=== PATIENT | female | born 1965 | race Caucasian/White ===

== ENCOUNTER 2016-07-26 17:53 | Emergency (ER) | payer OTHER ==
[~2016-07-26] VITALS: Ht 170.2 cm; Wt 86.2 kg
[~2016-07-26 17:53] MED LIST: ANTIVERT 25MG #1 PAC PO; ROBITUSSIN W/CO10 ML PO; ZITHROMAX Z-PA250 M1 PO; ZOFRAN ODT4 M1 SL
--- NOTE | 2016-07-26 18:09 | ED GI/GU/ABDOMINAL COMPLAINT ---
History of Present Illness General Chief Complaint: Abdominal Pain/Flank Pain Stated Complaint: ABD PAIN Source: patient, old records Exam Limitations: no limitations Vital Signs & Intake/Output Vital Signs & Intake/Output Vital Signs Date Time Temp Pulse Resp B/P Pulse O2 O2 Flow FiO2 Ox Delivery Rate 07/26 1803 97.0 75 16 142/88 99 Room Air Allergies Coded Allergies: Sulfa (Sulfonamide Antibiotics) (RASH 07/26/16) Reconcile Medications Amlodipine Besylate/Benazepril (Amlodipine-Benazepril 10-40 MG) 10 MG-40 MG CAPSULE 1 CAP PO DAILY BP (Reported) Aspirin (Ecotrin*) 81 MG TABLET.DR 1 TAB PO DAILY HEART/BLOOD (Reported) Atorvastatin Calcium 10 MG TABLET 1 TAB PO DAILY CHOLESTEROL (Reported) Cholecalciferol (Vitamin D3) (Vitamin D) (Unknown Strength) TABLET (Unknown Dose) PO DAILY SUPPLEMENT (Reported) Cyanocobalamin (Vitamin B-12) (Unknown Strength) TABLET (Unknown Dose) PO DAILY SUPPLEMENT (Reported) Gluc 2KCL/Chondr/Earl Hy/Hy AC (Glucosamine & Chondroitin Cap) (Unknown Strength ) CAPSULE (Unknown Dose) PO DAILY SUPPLEMENT (Reported) Ondansetron HCl (Zofran) 4 MG TABLET 1 TAB PO Q6-8P PRN NAUSEA Oxycodone HCl/Acetaminophen (Percocet 5-325 MG Tablet) 5 MG-325 MG TABLET 1 TAB PO Q6 PAIN Tamsulosin HCl (Flomax) 0.4 MG CAP.ER.24H 1 CAP PO DAILY KIDNEY STONE Triamcinolone Acetonide 0.1 % CREAM..G. 1 OSCAR TOP BID ANKLE (Reported) Triage Note: PT STATES SHE IS HAVING CRAMPING IN HER ABD. PT STATES SHE WAS SEEN HERE FOR SAME ABOUT 12 MONTH AGO AND STATES THEY DID NOT FIND ANYTHING. Triage Nurses Notes Reviewed? yes ? N Is pt currently ? No Onset: Abrupt Duration: constant Timing: single episode today Quality/Severity: moderate Severity Numbers: 5 Location: epigastric Radiation: no radiation Activities at Onset: eating HPI: Patient is a 51-year-old female with past medical history of hypertension who presents emergency room stating approximately 2 months ago patient was seen at the emergency room for similar complaints however patient was evaluated for at the time for chest pain and nausea patient follow up with primary care doctor day received outpatient ultrasounds showing sludge of the gallbladder however no signs of cholecystitis. Patient states today at approximately 1300 she ATE Camb[place]ian food and pizza and 30 minutes prior to arrival patient had acute onset of right upper quadrant and epigastric nonradiating pain with mild nausea with no emesis. Patient denies any significant alcohol use or NSAID use Last bowel movement was within last 24 hours no blood no melena noted (YOVANI ALLEN) Past History Travel History Traveled to [place] past 21 day No Medical History Any Pertinent Medical History? see below for history Neurological: NONE EENT: NONE Cardiovascular: hypertension Respiratory: NONE Gastrointestinal: NONE Hepatic: NONE Renal: KIDNEY STONES Musculoskeletal: NONE Psychiatric: NONE Endocrine: NONE Surgical History Surgical History: non-contributory Psychosocial History Who do you live with Family Services at Home None What is your primary language Setswana Tobacco Use: Never used ETOH Use: occasional use Illicit Drug Use: denies illicit drug use Family History Hx Contributory? No (YOVANI ALLEN) Review of Systems Review of Systems Constitutional: Reports: no symptoms. EENTM: Reports: no symptoms. Respiratory: Reports: no symptoms. Cardiovascular: Reports: no symptoms. GI: Reports: see HPI, abdominal pain. Genitourinary: Reports: no symptoms. Musculoskeletal: Reports: no symptoms. Skin: Reports: no symptoms. Neurological/Psychological: Reports: no symptoms. Hematologic/Endocrine: Reports: no symptoms. Immunologic/Allergic: Reports: no symptoms. All Other Systems: Reviewed and Negative (YOVANI ALLEN) Physical Exam Physical Exam General Appearance: well developed/nourished, no apparent distress, alert Gastrointestinal: normal bowel sounds, soft, mODERATE RIGHT UPPER QUADRANT AND EPIGASTRIC POINT TENDERNESS NOTED, NO RIGHT LOWER QUADRANT PAIN NO LEFT LOWER QUADRANT PAIN NO PERITONEAL SIGNS. Comments: Well-developed well-nourished person in no acute distress HEENT: Normal EENT exam, Neck: Supple, no lymphadenopathy, normal range of motion without pain or tenderness Back: Nontender, no CVA tenderness. Cardiovascular: Regular rate and rhythms no murmurs rubs or gallops, normal JVP Respiratory: Chest nontender. No respiratory distress.breath sounds clear to auscultation bilaterally Abdomen: Soft, nontender nondistended, no appreciable organomegaly. Normal bowel sounds. No ascites Extremity: No edema, no calf tenderness to palpation, normal and equal pulses. Neuro: Alert oriented x3, motor sensory normal, Skin: No appreciable rash on exposed skin, skin is warm and dry. Psych: Mood and affect is normal, memory and judgment is normal. Core Measures ACS in differential dx? No Severe Sepsis Present: No Septic Shock Present: No (KITTY MARY,YOVANI) Progress Differential Diagnosis: AAA, AMI, appendicitis, biliary colic, bowel obstruction , colon cancer, cholecystitis, diverticulitis, ectopic , endometritis, esophageal varices, gastritis, hepatitis, hernia, hemorrhoids, ischemic bowel, inflamm bowel dis, intrauterine , kidney stone, Brigitte-Gwen tear, ovarian cyst, ovarian torsion, pancreatitis, PID/cervicitis, peptic ulcer, PUD/ GERD, perforated viscous, SBO, threatened AB, UTI/pyelo Plan of Care: Orders Procedure Date/time Status CULTURE,URINE 07/26 2030 Active URINALYSIS 07/26 2030 Complete PARTIAL THROMBOPLASTIN TIME 07/26 1834 Complete PROTHROMBIN TIME 07/26 1834 Complete LIPASE 07/26 1831 Complete DIRECT BILIRUBIN 07/26 1831 Complete COMPREHENSIVE METABOLIC PANEL 07/26 1831 Complete CBC WITHOUT DIFFERENTIAL 07/26 1831 Complete AMYLASE 07/26 1831 Complete Laboratory Tests 07/26/160: Urine Color STRAW, Urine Clarity CLEAR, Urine pH 7.0, Ur Specific Gilchrist 1.010, Urine Protein NEG, Urine Ketones NEG, Urine Nitrite NEG, Urine Bilirubin NEG, Urine Urobilinogen 0.2, Ur Leukocyte Esterase NEG, Ur Microscopic SEDIMENT EXAMINED, Urine RBC RARE, Urine WBC RARE, Ur Epithelial Cells MOD H, Urine Hemoglobin TRACE-INTACT, Urine Glucose NEG 07/26/16 1855: Anion Gap 11, Estimated GFR > 60, BUN/Creatinine Ratio 18.8, Glucose 91, Calcium 9.7, Total Bilirubin 0.5, Direct Bilirubin 0.3, AST 24, ALT 28, Alkaline Phosphatase 102, Total Protein 7.3, Albumin 4.0, Globulin 3.3, Albumin/Globulin Ratio 1.2, Amylase 61, Lipase 115, PT 10.6, INR 1.01, APTT 32, CBC w Diff NO MAN DIFF REQ, RBC 4.71, MCV 89.3, MCH 29.9, RDW 13.6, MPV 8.6, Gran % 58.4, Lymphocytes % 28.8, Monocytes % 9.5 H, Eosinophils % 2.6, Basophils % 0.7, Absolute Granulocytes 5.4, Absolute Lymphocytes 2.7, Absolute Monocytes 0.9 H, Absolute Eosinophils 0.2, Absolute Basophils 0.1, PUBS MCHC 33.4 Microbiology 07/26 2109 URINE ROUT: Urine Culture - RECD 07/26/2016 7:58:49 PM patient currently no apparent distress and had complete resolution of abdominal pain. Labs are unremarkable at this time however patient is receiving CT scan Patient after CT scan was resulted was given copies and informed of findings. Patient had no concerns of respiratory complaints especially since of pneumonia or bronchitis due to ct scan findings of ground glass OPACITIES Patient did have CT scan findings of right-sided kidney stone Patient currently is tolerating by mouth prior to discharge. Upon discharge patient looks well no apparent distress and will comply with discharge INSTRUCTION AND and had no questions. Discussed hand off with YOVANI DÍAZ PA-C in which patient disposition and plan is currently pending due to urinalysis to be obtained. (KITTY MARY,YOVANI) 07/26/2016 9:49:29 PM discussed with the patient her urinalysis results. She will be provided with follow-up with urology pain medication nausea medicine when necessary I advised return anytime sooner if symptoms worsen she feels comfortable this plan answered all their questions cleared for discharge (YOVANI MCGARRY) Diagnostic Imaging: Viewed by Me: CT Scan. Radiology Impression: acute abnormality Initial ED EKG: none Hand-Off Endorsed To: YOVANI MCGARRY Endorsed Time: 2103 Pending: labs Comments: PATIENT: DONNY LYNN PRESENT AGE: 51 PATIENT ACCOUNT NO: [id number] : 64 LOCATION: [facility] ORDERING PHYSICIAN: YOVANI MARY SERVICE DATE: 07/26/16 EXAM TYPE: CAT - CT ABD & PELVIS W IV CONTRAST EXAMINATION: CT ABDOMEN AND PELVIS WITH CONTRAST CLINICAL INFORMATION: Right upper quadrant pain COMPARISON: Ultrasound 06/06/2016, CT abdomen and pelvis 01/16/2010 TECHNIQUE: Multidetector volumetric imaging was performed of the abdomen and pelvis before and after the IV administration of 94 mL of Omnipaque 300 intravenous contrast. Sagittal and coronal reformatted images were obtained on the technologist's workstation. DLP: 604.70 mGy-cm. FINDINGS: LUNG BASES: There are bibasilar areas of groundglass attenuation which are patchy in distribution and may reflect infection or inflammation. A small opacities are identified within the lingula. This likely represents atelectasis. LIVER, GALLBLADDER, AND BILIARY TREE: The liver enhances homogeneously. There are a few indeterminate areas of enhancement. There is an enhancing lesion within segment 7 of the liver measuring 1.3 cm in size (image 10, series 2). This appears to be a new finding compared to the 2010 study. There is an indeterminate hypoattenuating lesion within segment 8 of the liver measuring 0.6 cm in size. This is not clearly demonstrated on the 2010 examination. A tiny hypoattenuating lesion within segment 6 of the liver is unchanged compared to 2010. The gallbladder is unremarkable with no evidence of radiopaque gallstones, gallbladder wall thickening, or obvious pericholecystic inflammatory changes. PANCREAS: Unremarkable. SPLEEN: Unremarkable. ADRENAL GLANDS: Unremarkable. KIDNEYS AND URETERS: The kidneys enhance symmetrically. There is mild right-sided hydroureteronephrosis which appears to be secondary to a hyperdense focus located immediately proximal to the right ureterovesicular junction measuring 0.3 cm in size (image 80, series 2). The left kidney is unremarkable. There is no hydronephrosis. At the lower pole of left kidney there is a hyperdense structure measuring 0.6 cm in size consistent with a nonobstructing stone. BLADDER: Unremarkable. GASTROINTESTINAL TRACT: There are no dilated loops of small or large bowel. There are scattered diverticula involving the distal descending colon as well as the sigmoid colon. A normal appendix is visualized in the right lower quadrant. ABDOMINAL WALL: No significant hernia is appreciated. LYMPH NODES: Normal. VASCULAR: Unremarkable. PELVIC VISCERA: Unremarkable. OSSEOUS STRUCTURES: There are mild degenerative changes involving the lower lumbar spine. IMPRESSION: 1. Acute right-sided mild hydroureteronephrosis secondary to distal right ureteral stone immediately proximal to the UVJ. 2. Indeterminant enhancing lesion at the dome of the liver possibly new compared to the 2010 remote exam. Consider further characterization with nonemergent MRI. 3. Bibasilar patchy groundglass opacities either consistent with inflammatory or infectious process. Clinical correlation recommended. (KITTY MARY,YOVANI) Departure Departure Disposition: HOME OR SELF CARE Condition: Stable Clinical Impression Primary Impression: Kidney stone on right side Secondary Impressions: Liver lesion Referrals: DALILA BISHOP,EDGAR SOSA MD,CODY (PCP/Family) Additional Instructions: As discussed begin [id number] ibuprofen for pain and inflammation begin the prescription of Percocet for breakthrough pain relief. Begin the prescription of Zofran for future nausea. On Thursday follow-up with urologist Dr. CONNER for further evaluation treatment. Please follow-up with your primary care doctor for your CT scan findings. Begin the prescription of Flomax as directed for the full course Departure Forms: Customer Survey General Discharge Information Prescriptions: Current Visit Scripts Ondansetron HCl (Zofran) 1 TAB PO Q6-8P PRN NAUSEA #15 TAB Oxycodone HCl/Acetaminophen (Percocet 5-325 MG Tablet) 1 TAB PO Q6 #10 TAB Tamsulosin HCl (Flomax) 1 CAP PO DAILY #7 CAP (YOVANI ALLEN)
[2016-07-26 19:14] LABS: ABSOLUTE BASOPHIL COUNT 0.1 /CUMM (0.0-0.2); ABSOLUTE EOSINOPHIL COUNT 0.2 /CUMM (0.0-0.7); ABSOLUTE GRANULOCYTE CT 5.4 /CUMM (1.4-6.5); ABSOLUTE LYMPH COUNT 2.7 /CUMM (1.2-3.4); ABSOLUTE MONOCYTE COUNT 0.9 /CUMM (0.10-0.60); BASOPHIL % 0.7 % (0.0-2.0); EOSINOPHIL % 2.6 % (0-5); GRANULOCYTE % 58.4 % (42.2-75.2); HEMATOCRIT 42.1 % (37-47); MEAN CORPUSCULAR HGB 29.9 PG (27.0-31.0); MEAN CORPUSCULAR HGB CONC 33.4 G/DL (33.0-37.0); MEAN CORPUSCULAR VOLUME 89.3 FL (81.0-99.0); MEAN PLATELET VOLUME 8.6 FL (7.4-10.4); PLATELET COUNT 412 /CUMM (130-400); RBC DISTRIBUTION WIDTH 13.6 % (11.5-14.5); RED BLOOD CELL CT 4.71 /CUMM (4.20-5.40); WHITE BLOOD CELL COUNT 9.3 /CUMM (4.8-10.8)
[2016-07-26 19:28] LABS: PT 10.6 SEC (9.4-12.5); PTT 32 SEC (25-37)
[2016-07-26] MEDS ORDERED: ATORVASTATIN CA10 M1 PO (20:23)
[2016-07-26] MEDS ORDERED: AMLODIPINE-BEN1 EAC5 PO (20:23)
[2016-07-26] MEDS ORDERED: ASPIRIN EC81 M1 PO (20:23)
[2016-07-26] MEDS ORDERED: TRIAMCINOLONE A15 G1 TOP (20:24)
[2016-07-26] MEDS ORDERED: VITAMIN B-121000 MC3 PO (20:26)
[2016-07-26] MEDS ORDERED: VITAMIN D2000 UNI1 PO (20:26)
[2016-07-26] MEDS ORDERED: GLUCOSAMINE &1 EAC1 PO (20:27)
--- NOTE | 2016-07-26 20:28 | CT SCAN REPORT ---
EXAMINATION: CT ABDOMEN AND PELVIS WITH CONTRAST CLINICAL INFORMATION: Right upper quadrant pain COMPARISON: Ultrasound 06/06/2016, CT abdomen and pelvis 01/16/2010 TECHNIQUE: Multidetector volumetric imaging was performed of the abdomen and pelvis before and after the IV administration of 94 mL of Omnipaque 300 intravenous contrast. Sagittal and coronal reformatted images were obtained on the technologist's workstation. DLP: 604.70 mGy-cm. FINDINGS: LUNG BASES: There are bibasilar areas of groundglass attenuation which are patchy in distribution and may reflect infection or inflammation. A small opacities are identified within the lingula. This likely represents atelectasis. LIVER, GALLBLADDER, AND BILIARY TREE: The liver enhances homogeneously. There are a few indeterminate areas of enhancement. There is an enhancing lesion within segment 7 of the liver measuring 1.3 cm in size (image 10, series 2). This appears to be a new finding compared to the 2010 study. There is an indeterminate hypoattenuating lesion within segment 8 of the liver measuring 0.6 cm in size. This is not clearly demonstrated on the 2010 examination. A tiny hypoattenuating lesion within segment 6 of the liver is unchanged compared to 2010. The gallbladder is unremarkable with no evidence of radiopaque gallstones, gallbladder wall thickening, or obvious pericholecystic inflammatory changes. PANCREAS: Unremarkable. SPLEEN: Unremarkable. ADRENAL GLANDS: Unremarkable. KIDNEYS AND URETERS: The kidneys enhance symmetrically. There is mild right-sided hydroureteronephrosis which appears to be secondary to a hyperdense focus located immediately proximal to the right ureterovesicular junction measuring 0.3 cm in size (image 80, series 2). The left kidney is unremarkable. There is no hydronephrosis. At the lower pole of left kidney there is a hyperdense structure measuring 0.6 cm in size consistent with a nonobstructing stone. BLADDER: Unremarkable. GASTROINTESTINAL TRACT: There are no dilated loops of small or large bowel. There are scattered diverticula involving the distal descending colon as well as the sigmoid colon. A normal appendix is visualized in the right lower quadrant. ABDOMINAL WALL: No significant hernia is appreciated. LYMPH NODES: Normal. VASCULAR: Unremarkable. PELVIC VISCERA: Unremarkable. OSSEOUS STRUCTURES: There are mild degenerative changes involving the lower lumbar spine. IMPRESSION: 1. Acute right-sided mild hydroureteronephrosis secondary to distal right ureteral stone immediately proximal to the UVJ. 2. Indeterminant enhancing lesion at the dome of the liver possibly new compared to the 2010 remote exam. Consider further characterization with nonemergent MRI. 3. Bibasilar patchy groundglass opacities either consistent with inflammatory or infectious process. Clinical correlation recommended.
[2016-07-26] MEDS ORDERED: ZOFRAN4 M2 PO (20:38)
[2016-07-26] MEDS ORDERED: PERCOCET 5-3251 EACH PO (20:38)
[2016-07-26] MEDS ORDERED: FLOMAX0.4 M1 PO (20:59)
[2016-07-26 21:54] VITALS: BP 134/82
== END 2016-07-26 21:55 ==
LOC: ERH 17:53
PROVIDERS: Physician Assistant
DX: N20.0 Calculus of kidney (principal); K76.9 Liver disease, unspecified
CPT/HCPCS: 74177; 81001; 87086; 96361; 96374; 96375; J2405

== ENCOUNTER 2016-08-22 01:18 | Observation (INO) | payer OTHER ==
[~2016-08-22] VITALS: Ht 172.7 cm; Wt 87.1 kg
[~2016-08-22 01:18] MED LIST changes: +AMLODIPINE-BEN1 EAC5 PO; +ASPIRIN EC81 M1 PO; +ATORVASTATIN CA10 M1 PO; +FLOMAX0.4 M1 PO; +GLUCOSAMINE &1 EAC1 PO; +PERCOCET 5-3251 EACH PO; +TRIAMCINOLONE A15 G1 TOP; +VITAMIN B-121000 MC3 PO; +VITAMIN D2000 UNI1 PO; +ZOFRAN4 M2 PO
--- NOTE | 2016-08-22 19:20 | Patient Discharge Instructions ---
Discharge Instructions General Discharge Information You were seen/treated for: RULE OUT KIDNEY STONE You had these procedures: URETEROSCOPY WITH STENT PLACEMENT Watch for these problems: INCREASING PAIN, INCREASING BLOOD IN URINE, INABILITY TO URINATE. FEVER >101.5 Call Surgeon to remove: Other (STENT) Diet Continue normal diet: Yes Activity Full Activity/No Limits: Yes Acute Coronary Syndrome Inclusion Criteria At DC or during hospital stay patient has or had the following: ACS DIAGNOSIS No Discharge Core Measures Meds if any: Prescribed or Continued at Discharge Meds if any: NOT Prescribed or Continued at Discharge Congestive Heart Failure Inclusion Criteria At DC or during hospital stay patient has or had the following: CHF DIAGNOSIS No Discharge Core Measures Meds if any: Prescribed or Continued at Discharge Meds if any: NOT Prescribed or Continued at Discharge Cerebrovascular accident Inclusion Criteria At DC or during hospital stay patient has or had the following: CVA/TIA Diagnosis No Discharge Core Measures Meds if any: Prescribed or Continued at Discharge Meds if any: NOT Prescribed or Continued at Discharge Venous thromboembolism Inclusion Criteria VTE Diagnosis No VTE Type NONE VTE Confirmed by (Test) NONE Discharge Core Measures - Per Current guidelines, there needs to be overlap - treatment for the first 5 days of Warfarin therapy. - If discharged on Warfarin prior to 5 days of - overlap therapy, the patient will need to be - assessed for post discharge needs including - *Post discharge parental anticoagulation - *Warfarin and/or parental anticoagulation education - *Follow up date to check INR post discharge At least 5 days overlap therapy as Inpatient No Meds if any: Prescribed or Continued at Discharge Note: Overlap Therapy is Warfarin and Anticoagulant Meds if any: NOT Prescribed or Continued at Discharge
--- NOTE | 2016-08-22 19:23 | Admission Core Measures ---
Admission Meds I reviewed the following Meds: Current Medications Sig/Sb Start time Last Medication Dose Stop Time Status Admin Amlodipine Besylate 10 MG DAILY 08/23 1000 AC (Norvasc) Atorvastatin Calcium 10 MG DAILY 08/23 1000 AC (Lipitor) Cefazolin Sodium 2,000 MG ONCE 08/22 0000 NR (Kefzol-Ancef Inj) 08/22 2359 Acute Coronary Syndrome Inclusion Criteria ACS Diagnosis No Inpatient Core Measures LDL Reminder: If No, please order W/I first 24hr of stay Congestive Heart Failure Inclusion Criteria CHF Diagnosis No Cerebrovascular accident Inclusion Criteria CVA/TIA Diagnosis No Inpatient Core Measures Bedside Swallow Eval Reminder: If BSE failed, place ST order Antithrombotic Reminder: Order Antithrombotic Medication by end of day 2 Antithrombotic Reminder: Document Reason Antithrombotic Not ordered by end of day 2 AFIB/Flutter Reminder: If Present, add to problem list AFIB/Flutter Reminder: Order Anticoag Medication for pts with AFIB/Flutter Atherosclerosis Reminder: If Present, add to problem list LDL Reminder: If No, please order W/I first 24hr of stay PT Order Reminder: If No, please order Venous thromboembolism Inpatient Core Measures VTE Risk Factors: Age > 40 VTE Prophylaxis Ordered Inpt Mech & Pharm No Mech VTE prophylaxis d/t No contraindications No VTE Pharm Prophylaxis d/t No contraindications Inclusion Criteria - Per Current guidelines, there needs to be overlap - treatment for the first 5 days of Warfarin therapy. - Parenteral Anticoagulation (IV or SC) needs to be - given along with Warfarin therapy. VTE Diagnosis No VTE Type NONE VTE Confirmed by (Test) NONE Problem List As ranked by this Provider includes Assessment & Plan 1. Kidney stone on right side HOME MEDS Home Med List Amlodipine Besylate/Benazepril (Amlodipine-Benazepril 10-40 MG) 10 MG-40 MG CAPSULE 1 CAP PO DAILY BP (Reported) Aspirin (Ecotrin*) 81 MG TABLET.DR 1 TAB PO DAILY HEART/BLOOD (Reported) Atorvastatin Calcium 10 MG TABLET 1 TAB PO DAILY CHOLESTEROL (Reported) Cholecalciferol (Vitamin D3) (Vitamin D) (Unknown Strength) TABLET (Unknown Dose) PO DAILY SUPPLEMENT (Reported) Cyanocobalamin (Vitamin B-12) (Unknown Strength) TABLET (Unknown Dose) PO DAILY SUPPLEMENT (Reported) Gluc 2KCL/Chondr/Earl Hy/Hy AC (Glucosamine & Chondroitin Cap) (Unknown Strength ) CAPSULE (Unknown Dose) PO DAILY SUPPLEMENT (Reported) Triamcinolone Acetonide 0.1 % CREAM..G. 1 OSCAR TOP BID ANKLE (Reported)
[2016-08-22 19:55] VITALS: BP 112/60
--- NOTE | 2016-08-22 23:08 | NUR ---
NURSING NOTE; LATE ENTRY; PT ADMITTED TO ROOM 215-02 FROM PACU AT 1955. PT A/OX3, PT ON 2LNC WITH O2 SAT OF 91%. PT DENIES CP, DENIES SOB. PT HAS +PULSES, +BOWEL SOUNDS AND DENIES NAUSEA. PT COMPLAINING OF PAIN IN THE LOWER ABDOMEN. PT MEDICATED WITH PRN PAIN MED. PT ORIENTED TO ROOM AND CALL ADKINS. WILL CONTINUE TO MONITOR.
[2016-08-23 00:08] VITALS: BP 126/82
[2016-08-23] MEDS ORDERED: HYDROMORPHONE HC2 M1 PO (07:48)
[2016-08-23 08:41] VITALS: BP 130/80
--- NOTE | 2016-08-23 09:24 | PN- Urology ---
Subjective Subjective: Admitted as 23 hour observation due to pain s/p ureteral stent placement. No complaints this morning. Voiding spontaneously. Objective Vital Signs and I&Os Vital Signs Date Time Temp Pulse Resp B/P Pulse O2 O2 Flow FiO2 Ox Delivery Rate 08/23 840 98.7 78 20 130/80 91 Room Air 08/23 0008 98.0 85 20 126/82 92 08/23 0000 92 Nasal 2.0L Cannula 08/22 1954 91 Nasal 2.0L Cannula 08/22 1954 97.8 66 20 112/60 91 Nasal 2.0L Cannula Intake & Output 08/23 1600 08/23 0800 08/23 0000 08/22 1600 08/22 0800 08/22 0000 Intake Total 1080 800 Output Total Balance 1080 800 Intake, IV 600 400 Intake, Oral 480 400 Patient 192 lb Weight Physical Exam: Gen: AAOx3 in NAD Cor: S1+S2+ Lungs: CTA samson Abd: soft, NT, ND, +BSx4 Ext: no edema or calf tenderness to samson lower extremities. Assessment/Plan Assessment/Plan A: POD #1 s/p cystoscopy/ ureteral stent placement. AVSS. Plan: D/C home. Dr Mayer aware. Core Measures/Miscellaneous Venous Thromboembolism VTE Risk Factors: Age > 40, Surgery VTE Contraindications: No Contraindications VTE Prophylaxis Ordered Inpt: Mech & Pharm VTE Diagnosis: No VTE Type: NONE VTE Confirmed by (Test): NONE Beta Ananth Is Beta Ananth a Home Med? No Antibiotics Is Patient on Antibiotics? No
[2016-08-23 10:12] VITALS: BP 142/90
--- NOTE | 2016-08-23 14:19 | Operative Report ---
Operative/Inv Procedure Report Surgery Date: 08/22/16 Name of Procedure: left ureteroscopy with retrograde pyelopgram and right ureteroscopy Pre-Operative Diagnosis: left renal stone with colic Post-Operative Diagnosis: same Estimated Blood Loss: scant Surgeon/Spout Liner Helper: ROMEO BULLOCK MD Anesthesia: laryngeal mask airway Drains: 6x24 stent Complications: no stones found Condition: stable Operative Indication: left renal colic Operative/Procedure Note Note: 51yo female with hx of kidney stones. She was then counseled about left ureteroscopy with laser lithotripsy. Answered all questions after risks, benefits and alternatives given. Consented for left URS with laser lithotripsy, stone extraction, stent placement, possible retrorgrade pyelogram Patient identified in the holding area and taken to the operating room. She was placed on the operating table in the supine position. Time out was performed and IV antibiotics were given. An LMA was placed and the patient was positioned in the dorsal lithotomy position. She was prepped and draped in the standard sterile fashion. Cystoscopy was performed first and a sensor guidewire was placed without difficulty up the left ureter. A second wire was placed with a dual lumen catheter. An ureteral access sheath was then placed. The flexible digital scope was then placed into the renal pelvis. A stone was not identified in the renal pelvis which was examined twice with the digital scope. All the calyces were examined twice after the retrograde pyelogram as well. A retrograde pyelogram was performed and no filling defects to suggest stones were appreciated. The ureteral access sheath was removed while viewing the ureter outoing simultaneously. The remaining wire was then used to place a ureteral stent 6x24cm in length with the cystoscope. A right ureteroscopy was performed with a semi-rigid scope and no stones were seen on this side either. The patient tolerated the procedure well. Findings: no stones on the right or left side by flouro or direct with ureteroscopes Discharge Disposition: PACU
--- NOTE | 2016-08-23 15:01 | RADIOLOGY REPORT ---
EXAMINATION: XR ABDOMEN CLINICAL INDICATION: Left ureteroscopy. COMPARISON: CT abdomen pelvis 08/13/2016. TECHNIQUE: 6 fluoroscopic images provided under the supervision of Dr. Mayer in operating room. Fluoroscopic time not provided. FINDINGS/IMPRESSION: Imaging shows progression of instrumentation for cannulation and retrograde injection of the left ureter/renal collecting system. No extravasation of contrast. No complication demonstrated. Please refer to Dr. Sanchez's procedural note.
== END 2016-08-23 13:24 ==
LOC: ENRESERVTM → ENRESERVDT → STS 01:18 → ENPENDDIS 18:53 → PACUH 18:53 → 2NB 19:55
PROVIDERS: ADMIT Urology
DX: N23 Unspecified renal colic (principal)
CPT/HCPCS: 6040; 74000; C2617; G0378; J0131; J0690; J1644; J1885; J2405

== ENCOUNTER 2016-08-24 09:06 | Emergency (ER) | payer OTHER ==
[~2016-08-24] VITALS: Ht 172.7 cm; Wt 87.1 kg
[~2016-08-24 09:06] MED LIST changes: +HYDROMORPHONE HC2 M1 PO
[2016-08-24 09:13] VITALS: BP 122/78
--- NOTE | 2016-08-24 09:43 | ED GI/GU/ABDOMINAL COMPLAINT ---
History of Present Illness General Chief Complaint: Abdominal Pain/Flank Pain Stated Complaint: "I HAVE BLOOD IN MY URINE" Source: patient, family, old records Exam Limitations: no limitations Vital Signs & Intake/Output Vital Signs & Intake/Output Vital Signs Date Time Temp Pulse Resp B/P Pulse O2 O2 Flow FiO2 Ox Delivery Rate 08/24 0913 97.9 74 20 122/78 97 Room Air Room Air Allergies Coded Allergies: Sulfa (Sulfonamide Antibiotics) (RASH 07/26/16) Reconcile Medications Amlodipine Besylate/Benazepril (Amlodipine-Benazepril 10-40 MG) 10 MG-40 MG CAPSULE 1 CAP PO DAILY BP (Reported) Aspirin (Ecotrin*) 81 MG TABLET.DR 1 TAB PO DAILY HEART/BLOOD (Reported) Atorvastatin Calcium 10 MG TABLET 1 TAB PO DAILY CHOLESTEROL (Reported) Cholecalciferol (Vitamin D3) (Vitamin D) (Unknown Strength) TABLET (Unknown Dose) PO DAILY SUPPLEMENT (Reported) Cyanocobalamin (Vitamin B-12) (Unknown Strength) TABLET (Unknown Dose) PO DAILY SUPPLEMENT (Reported) Gluc 2KCL/Chondr/Earl Hy/Hy AC (Glucosamine & Chondroitin Cap) (Unknown Strength ) CAPSULE (Unknown Dose) PO DAILY SUPPLEMENT (Reported) Hydromorphone HCl 2 MG TABLET 1-2 TAB PO Q4P PRN PAIN Triamcinolone Acetonide 0.1 % CREAM..G. 1 OSCAR TOP BID ANKLE (Reported) Triage Note: PT TO ED WITH C/O BLOODY URINE, HAD PROCEDURE AND STENT PLACED ON THURSDAY BY DR MAYER. DENIES FEVER. Triage Nurses Notes Reviewed? yes ? n Is pt currently ? No HPI: Patient presents for evaluation of blood in the urine that began last night. Patient states she has had 3 episodes. She is status post renal stent placement on Thursday by Dr. Mayer. She is experiencing a mild left flank and abdominal pain and also mild dysuria but denies associated fever or cold symptoms. She attempted to call her primary care doctor and Dr. Bermudez's without response. The color of the urine seems to be getting darker with each subsequent episode of hematuria. Past History Travel History Traveled to [place] past 21 day No Medical History Any Pertinent Medical History? 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 No Review of Systems Review of Systems Constitutional: Reports: no symptoms. EENTM: Reports: no symptoms. Respiratory: Reports: no symptoms. Cardiovascular: Reports: no symptoms. GI: Reports: no symptoms. Genitourinary: Reports: see HPI. Musculoskeletal: Reports: no symptoms. Skin: Reports: no symptoms. Neurological/Psychological: Reports: no symptoms. Hematologic/Endocrine: Reports: no symptoms. Immunologic/Allergic: Reports: no symptoms. All Other Systems: Reviewed and Negative Physical Exam Physical Exam Gastrointestinal: SEE BELOW Comments: Gen.: Well-nourished, well-developed, no acute respiratory distress. Head: Normocephalic, atraumatic. Eyes: Normal inspection bilaterally Ears: Normal inspection bilaterally Nose: Normal inspection Throat/mouth : Moist mucosa Neck: Supple, full range of motion, no goiter Heart: Regular rate and rhythm, no murmurs rubs or gallops Lungs: Quiet respirations Back: Normal range of motion, mild left CVAT Abdomen: Soft, mild left sided abdominal tenderness without rebound or guarding, nondistended, normal bowel sounds Extremities: Normal range of motion grossly, equal radial pulses, no cyanosis clubbing or edema Neurologic: Cranial nerves grossly intact, speech is clear Skin: warm and dry Psychiatric: Calm, cooperative, no apparent delusions or hallucinations Core Measures ACS in differential dx? No Severe Sepsis Present: No Septic Shock Present: No Progress Differential Diagnosis: UTI/pyelo, POSTOPERATIVE MANIFESTATIONS Plan of Care: Orders Procedure Date/time Status URINALYSIS 08/24 09 Complete Laboratory Tests 08/24/16 0920: Urine Color BLDY H, Urine Clarity HAZY H, Urine pH 7.0, Ur Specific [place] 1.010, Urine Protein 100 H, Urine Ketones NEG, Urine Nitrite NEG, Urine Bilirubin NEG, Urine Urobilinogen 0.2, Ur Leukocyte Esterase MOD H, Ur Microscopic SEDIMENT EXAMINED, Urine RBC PACKD H, Urine WBC 5-10 H, Ur Epithelial Cells MOD H, Urine Hemoglobin LARGE H, Urine Glucose NEG Initial ED EKG: none Comments: 08/24/2016 10:56:34 AM patient's case discussed with Dr. Wells who feels that the patient's symptoms are likely postoperative in nature and not unexpected. Departure Departure Disposition: HOME OR SELF CARE Condition: Stable Clinical Impression Primary Impression: Hematuria Referrals: IAN BISHOP,CODY (PCP/Family) Additional Instructions: Follow-up with Dr. Mayer this week. Maintain a good fluid intake. Return if any concerns or sudden worsening. Departure Forms: Customer Survey General Discharge Information
[2016-08-25] MEDS ORDERED: CIPRO500 M1 PO (15:47)
== END 2016-08-24 11:30 ==
LOC: ERH 09:06
DX: R31.9 Hematuria, unspecified (principal)
CPT/HCPCS: 81001

== ENCOUNTER 2016-08-25 10:21 | Emergency (ER) | payer OTHER ==
[~2016-08-25] VITALS: Ht 172.7 cm; Wt 87.1 kg
--- NOTE | 2016-08-25 11:20 | ED GENERAL ADULT ---
History of Present Illness General Chief Complaint: Abdominal Pain/Flank Pain Stated Complaint: RT ABD PAIN Source: patient, family Exam Limitations: no limitations Vital Signs & Intake/Output Vital Signs & Intake/Output Vital Signs Date Time Temp Pulse Resp B/P Pulse O2 O2 Flow FiO2 Ox Delivery Rate 08/25 1552 97.9 72 16 137/83 96 Room Air 08/25 1503 98.0 65 20 124/77 94 Room Air 08/25 1356 98.3 80 18 148/76 97 Room Air 08/25 1024 99.0 81 20 140/85 96 Room Air Allergies Coded Allergies: Sulfa (Sulfonamide Antibiotics) (RASH 07/26/16) Reconcile Medications Amlodipine Besylate/Benazepril (Amlodipine-Benazepril 10-40 MG) 10 MG-40 MG CAPSULE 1 CAP PO DAILY BP (Reported) Atorvastatin Calcium 10 MG TABLET 1 TAB PO DAILY CHOLESTEROL (Reported) Cholecalciferol (Vitamin D3) (Vitamin D) (Unknown Strength) TABLET (Unknown Dose) PO DAILY SUPPLEMENT (Reported) Ciprofloxacin HCl (Cipro) 500 MG TABLET 1 TAB PO BID UTI Cyanocobalamin (Vitamin B-12) (Unknown Strength) TABLET (Unknown Dose) PO DAILY SUPPLEMENT (Reported) Gluc 2KCL/Chondr/Earl Hy/Hy AC (Glucosamine & Chondroitin Cap) (Unknown Strength ) CAPSULE (Unknown Dose) PO DAILY SUPPLEMENT (Reported) Hydromorphone HCl 2 MG TABLET 1-2 TAB PO Q4P PRN PAIN Triamcinolone Acetonide 0.1 % CREAM..G. 1 OSCAR TOP BID ANKLE (Reported) Triage Note: PT TO ED C/O R ABD PAIN. PT HAD URETERAL STENT PLACED ON THURSDAY BY DR MAYER. PT WAS IN ED THURSDAY FOR BLOOD IN URINE. PT ARRIVES TODAY WITH CONTINUED BLOOD IN URINE AND R ABD PAIN. PT IS TAKING PO DILAUDID FOR PAIN, IT IS NOT HELPING. DENIES N/V/D DENIES FEVERS. Triage Nurses Notes Reviewed? yes Onset: Abrupt Duration: hour(s): Timing: recent history HPI: 08/25/16 12:31 PM 51-year-old female presents to the emergency department complaining of right- sided flank pain. The patient states that she was having pain in her left flank and had a left stent placed (left ureteroscopy with retrograde pyelopgram and right ureteroscopy) by Dr. Mayer on Thursday. Then she was seen and evaluated over the weekend for hematuria. This morning she had severe right-sided flank pain. She did have a CT scan of the abdomen and pelvis that was done on a prior emergency department visit. The onset of the symptoms were abrupt, the duration was several hours, the severity significant as her symptoms required to come to the emergency department for care . Prior CTs shown below BelowPATIENT: DONNY LYNN PRESENT AGE: 51 PATIENT ACCOUNT NO: [id number] : 64 LOCATION: [facility] ORDERING PHYSICIAN: ROMEO MAYER MD SERVICE DATE: 08/13/16 EXAM TYPE: CAT - CT ABD & PELVIS W/O IV CONTRAS EXAMINATION: CT ABDOMEN AND PELVIS WITHOUT CONTRAST CLINICAL INFORMATION: Renal colic. Bilateral. COMPARISON: Renal ultrasound 08/08/[address] scan of the abdomen and pelvis 07/26/2016. TECHNIQUE: Multidetector volumetric imaging was performed from the superior aspect of the liver through the pubic symphysis. Sagittal and coronal reformatted images were obtained on the technologist's workstation. DLP: 1216.58 mGy-cm FINDINGS: LUNG BASES: The study redemonstrates a small area of increased density in the lower lingula, consistent with atelectasis there are no pleural effusions. LIVER, GALLBLADDER, AND BILIARY TREE: The liver is normal in size and has homogenous density. As the study is noncontrast, the areas of enhancement noted on the prior study are not appreciated on the current exam. Small areas of low density in the right lobe superiorly and inferiorly are unchanged. The intrahepatic ducts are not dilated. The study redemonstrates layering gallstones within the gallbladder lumen. There is no evidence of gallbladder wall thickening or pericholecystic fluid to suggest acute cholecystitis. PANCREAS: Unremarkable. SPLEEN: Unremarkable. ADRENAL GLANDS: The adrenal glands are not enlarged. KIDNEYS AND URETERS: Both kidneys are normal in size and shape. The hydronephrosis and hydroureter on the right have resolved when compared to the prior study. There are no radiopaque densities in the right kidney. There is no hydronephrosis on the left. There has been no interval change in the 6 mm nonobstructive calculus toward the lower pole of the left kidney. There is no perinephric stranding. There is a persistent 3 mm area of calcification posterior to the bladder on the right, which is unchanged and appears to be most consistent with a phlebolith. BLADDER: The bladder is almost empty. GASTROINTESTINAL TRACT: The stomach and small bowel are unremarkable. The appendix is normal. There is diverticulosis noted throughout the large bowel, without evidence of acute diverticulitis. ABDOMINAL WALL: No significant hernia is appreciated. LYMPH NODES: There is no pelvic or retroperitoneal lymphadenopathy. There are a few scattered mesenteric lymph nodes which appear unchanged. VASCULAR: Limited evaluation due to lack of intravenous contrast. PELVIC VISCERA: There are sequelae of a hysterectomy. There are no pelvic masses. There is no free fluid in the pelvis. OSSEOUS STRUCTURES: There are no acute osseous findings. There are degenerative changes in the lumbar spine and sacroiliac joints. IMPRESSION: 1. The hydronephrosis and hydroureter demonstrated on the prior CT scan have resolved. The calcification adjacent to the posterior bladder on the right is most consistent with a phlebolith. 2. There has been no interval change in the 0.6 cm nonobstructive calculus toward the lower pole of the left kidney. 3. There is relatively extensive diverticulosis without evidence of diverticulitis. 4. There are layering gallstones in the gallbladder lumen, without evidence of acute cholecystitis. DICTATED BY: JULIANNA GUERRERO MD DATE/TIME DICTATED:08/13/161230 PANTOGRAPH MACHINE SET UP OPERATOR:MARGA DATE/TIME TRANSCRIBED:08/13/161230 CONFIDENTIAL, DO NOT COPY WITHOUT APPROPRIATE AUTHORIZATION. <Electronically signed in Other Vendor System> SIGNED BY: JULIANNA GUERRERO MD 08/13/16 0920 Past History Travel History Traveled to [place] past 21 day No Medical History Any Pertinent Medical History? 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 No Review of Systems Review of Systems Constitutional: Denies: fever. EENTM: Reports: no symptoms. Respiratory: Denies: short of breath. Cardiovascular: Denies: chest pain. GI: Reports: abdominal pain. Genitourinary: Reports: hematuria. Musculoskeletal: Reports: back pain. Skin: Denies: rash. Neurological/Psychological: Reports: no symptoms. Hematologic/Endocrine: Reports: no symptoms. Physical Exam Physical Exam General Appearance: well developed/nourished, alert, awake, anxious, moderate distress Head: atraumatic, normal appearance Eyes: Bilateral: normal appearance, PERRL, EOMI. Ears, Nose, Throat: normal pharynx, normal ENT inspection Neck: normal inspection, supple, full range of motion Respiratory: normal breath sounds, chest non-tender, no respiratory distress Cardiovascular: regular rate/rhythm Peripheral Pulses: 4+ radial (R), 4+ radial (L) Gastrointestinal: soft, non-tender Back: normal range of motion, CVA tenderness (R) Extremities: no edema Neurologic/Psych: no motor/sensory deficits, awake, alert, oriented x 3 Skin: intact, normal color, warm/dry Comments: Patient has mild right-sided CVA tenderness. Core Measures ACS in differential dx? No CVA/TIA Diagnosis: No Severe Sepsis Present: No Septic Shock Present: No Progress Differential Diagnoses I considered the following diagnoses in my evaluation of the patient: [Renal colic, pyelonephritis, appendicitis, diverticulitis, cholecystitis, pneumonia, pneumothorax, atelectasis, lumbar strain, aortic dissection] Plan of Care: Orders Procedure Date/time Status Add-on Test (ER Only) 08/25 1503 Active CULTURE,URINE 08/25 1214 Active COMPREHENSIVE METABOLIC PANEL 08/25 1214 Complete CBC WITHOUT DIFFERENTIAL 08/25 1214 Complete URINALYSIS 08/25 1125 Complete Laboratory Tests 08/25/16 1419: Lactic Acid Cancelled 08/25/16 1307: Anion Gap 9, Estimated GFR > 60, BUN/Creatinine Ratio 11.4, Glucose 85, Calcium 9.0, Total Bilirubin 0.7, AST 17, ALT 33, Alkaline Phosphatase 96, Total Protein 6.9, Albumin 3.8, Globulin 3.1, Albumin/Globulin Ratio 1.2, CBC w Diff NO MAN DIFF REQ, RBC 4.85, MCV 89.7, MCH 30.2, RDW 13.4, MPV 8.9, Gran % 78.4 H, Lymphocytes % 12.0 L, Monocytes % 8.7, Eosinophils % 0.6, Basophils % 0.3, Absolute Granulocytes 12.0 H, Absolute Lymphocytes 1.8, Absolute Monocytes 1.3 H, Absolute Eosinophils 0.1, Absolute Basophils 0, PUBS MCHC 33.7 08/25/16 1125: Urine Color PINK H, Urine Clarity HAZY H, Urine pH 7.0, Ur Specific [place] 1.010, Urine Protein 30 H, Urine Ketones NEG, Urine Nitrite NEG, Urine Bilirubin NEG, Urine Urobilinogen 0.2, Ur Leukocyte Esterase SMALL H, Ur Microscopic SEDIMENT EXAMINED, Urine RBC 15-25 H, Urine WBC 15-25 H, Ur Epithelial Cells MOD H, Urine Crystals 1+ [place] OX H, Urine Mucus FEW, Urine Hemoglobin LARGE H, Urine Glucose NEG 08/25/16 1119: Lactic Acid Cancelled, CBC w Diff Cancelled, WBC Cancelled, RBC Cancelled, Hgb Cancelled, Hct Cancelled, MCV Cancelled, MCH Cancelled, RDW Cancelled, Plt Count Cancelled, MPV Cancelled, PUBS MCHC Cancelled, Urine Color Cancelled, Urine Clarity Cancelled, Urine pH Cancelled, Ur Specific [place] Cancelled, Urine Protein Cancelled, Urine Ketones Cancelled, Urine Nitrite Cancelled, Urine Bilirubin Cancelled, Urine Urobilinogen Cancelled, Ur Leukocyte Esterase Cancelled, Ur Microscopic Cancelled, Urine Hemoglobin Cancelled, Urine Glucose Cancelled Microbiology 08/25 1125 URINE ROUT: Urine Culture - RECD 08/25 1118 URINE ROUT: Urine Culture - CAN Cancelled: Cancelled via OE: Error 08/25 1118 BLOOD: Blood Culture - CAN Cancelled: Cancelled via OE: Error 08/25 1118 BLOOD: Blood Culture - CAN Cancelled: Cancelled via OE: Error Initial ED EKG: none Departure Departure Disposition: HOME OR SELF CARE Condition: Stable Clinical Impression Primary Impression: Flank pain Referrals: CODY SOSA MD (PCP/Family) Departure Forms: Customer Survey General Discharge Information Prescriptions: Current Visit Scripts Ciprofloxacin HCl (Cipro) 1 TAB PO BID #20 TAB Comments 08/25/16 3:43 PM The patient's labs and ultrasound and chest x-ray results were reviewed with the on-call urologist Dr Trent. He agrees with the plan of care. We will treat the patient with Cipro and he will follow-up with the patient on Thursday. Currently in the ER she has much less pain. She is been afebrile. She did have significant leukocytosis. A stent was not placed in the right ureter Dr. Trent feels that this is likely secondary to ureter spasm causing the hydronephrosis. She will continue fluids. She will take Dilaudid for pain, she will return to the emergency department immediately should she have fever or if the pain is worse. Chest x-ray showed atelectasis, mild elevation of right hemidiaphragm. Abdominal ultrasound negative for cholecystitis Positive right sided hydroureter and hydronephrosis-likely secondary to spasm, possibly small stone not seen on ultrasound. Ultrasound report shown below PATIENT: DONNY LYNN PRESENT AGE: 51 PATIENT ACCOUNT NO: [id number] : 64 LOCATION: [facility] ORDERING PHYSICIAN: SIVAN HOWE DO SERVICE DATE: 08/25/16-1231 EXAM TYPE: US - US-COMPLETE ABDOMEN; XRY-PORTABLE CHEST XRAY EXAMINATION: CHEST X-RAY ULTRASOUND ABDOMEN CLINICAL INFORMATION: Right flank pain. COMPARISON: CT abdomen and pelvis dated 08/13/2016, limited ultrasound dated 06/06/2016 and chest x-ray dated 02/02/2012 TECHNIQUE: AP portable chest. Real-time ultrasound technique FINDINGS: CHEST X-RAY Stable cardiomediastinal silhouette. Interval mild elevation of the right hemidiaphragm. Minor linear subsegmental atelectatic changes noted in the right lower lung. No acute airspace opacity. Bony thorax is intact. ULTRASOUND ABDOMEN Pancreas: Visualized portions are unremarkable. Partly obscured by overlying bowel gas. Proximal aorta and IVC: Visualized portions are within normal limits. Liver: Increased hepatic echogenicity . Mild focal fatty sparing noted adjacent to the gallbladder fossa. Gallbladder: Unremarkable. Common bile duct: Within normal limits measuring 0.4 cm. Right kidney: There is mild right-sided hydronephrosis and proximal hydroureter. Distal obstructing calculus cannot be excluded. Lower pole right kidney demonstrates an echogenic nonobstructing calculus measuring 0.5 cm. Kidney measures 10.5 cm in length. Left kidney: No evidence of hydronephrosis. Nonobstructing 0.4-0.5 cm calculus lower pole left kidney. Kidney measures 11.6 cm in length. Spleen: Unremarkable. It measures 9.5 cm in length. Bladder: Left-sided stent. Visualization of bilateral ureteric jets. Incidental note is made of right ovarian cyst measuring 3.7 x 2.7 x 2.8 cm. IMPRESSION: 1. Right-sided hydronephrosis and proximal hydroureter. Distal partially obstructing calculus cannot be excluded. Bilateral ureteric jets identified. 2. Nonobstructing bilateral renal calculi. 3. No acute pulmonary disease. Mild elevation of the right hemidiaphragm and minor linear subsegmental atelectatic changes right lower lung. DICTATED BY: YENNI CANNON MD DATE/TIME DICTATED:08/25/161319 PANTOGRAPH MACHINE SET UP OPERATOR:MARGA DATE/TIME TRANSCRIBED:08/25/161319 CONFIDENTIAL, DO NOT COPY WITHOUT APPROPRIATE AUTHORIZATION. <Electronically signed in Other Vendor System> SIGNED BY: YENNI CANNON MD 08/25/16 5519 The plan of care was reviewed in detail with the patient, she had minimal pain prior to discharge she understood that she could return to the emergency department immediately if the pain returned and was to do so should she have any fever, or if worse. She will follow-up with Dr. Trent on Thursday. Critical Care Note Critical Care Note Critical Care Time: non-applicable
--- NOTE | 2016-08-25 13:33 | ULTRASOUND REPORT ---
EXAMINATION: CHEST X-RAY ULTRASOUND ABDOMEN CLINICAL INFORMATION: Right flank pain. COMPARISON: CT abdomen and pelvis dated 08/13/2016, limited ultrasound dated 06/06/2016 and chest x-ray dated 02/02/2012 TECHNIQUE: AP portable chest. Real-time ultrasound technique FINDINGS: CHEST X-RAY Stable cardiomediastinal silhouette. Interval mild elevation of the right hemidiaphragm. Minor linear subsegmental atelectatic changes noted in the right lower lung. No acute airspace opacity. Bony thorax is intact. ULTRASOUND ABDOMEN Pancreas: Visualized portions are unremarkable. Partly obscured by overlying bowel gas. Proximal aorta and IVC: Visualized portions are within normal limits. Liver: Increased hepatic echogenicity . Mild focal fatty sparing noted adjacent to the gallbladder fossa. Gallbladder: Unremarkable. Common bile duct: Within normal limits measuring 0.4 cm. Right kidney: There is mild right-sided hydronephrosis and proximal hydroureter. Distal obstructing calculus cannot be excluded. Lower pole right kidney demonstrates an echogenic nonobstructing calculus measuring 0.5 cm. Kidney measures 10.5 cm in length. Left kidney: No evidence of hydronephrosis. Nonobstructing 0.4-0.5 cm calculus lower pole left kidney. Kidney measures 11.6 cm in length. Spleen: Unremarkable. It measures 9.5 cm in length. Bladder: Left-sided stent. Visualization of bilateral ureteric jets. Incidental note is made of right ovarian cyst measuring 3.7 x 2.7 x 2.8 cm. IMPRESSION: 1. Right-sided hydronephrosis and proximal hydroureter. Distal partially obstructing calculus cannot be excluded. Bilateral ureteric jets identified. 2. Nonobstructing bilateral renal calculi. 3. No acute pulmonary disease. Mild elevation of the right hemidiaphragm and minor linear subsegmental atelectatic changes right lower lung.
[2016-08-25 13:39] LABS: ABSOLUTE BASOPHIL COUNT 0 /CUMM (0.0-0.2); ABSOLUTE EOSINOPHIL COUNT 0.1 /CUMM (0.0-0.7); ABSOLUTE LYMPH COUNT 1.8 /CUMM (1.2-3.4); ABSOLUTE MONOCYTE COUNT 1.3 /CUMM (0.10-0.60); BASOPHIL % 0.3 % (0.0-2.0); EOSINOPHIL % 0.6 % (0-5); GRANULOCYTE % 78.4 % (42.2-75.2); HEMATOCRIT 43.5 % (37-47); MEAN CORPUSCULAR HGB 30.2 PG (27.0-31.0); MEAN CORPUSCULAR HGB CONC 33.7 G/DL (33.0-37.0); MEAN CORPUSCULAR VOLUME 89.7 FL (81.0-99.0); MEAN PLATELET VOLUME 8.9 FL (7.4-10.4); PLATELET COUNT 424 /CUMM (130-400); RBC DISTRIBUTION WIDTH 13.4 % (11.5-14.5); RED BLOOD CELL CT 4.85 /CUMM (4.20-5.40); WHITE BLOOD CELL COUNT 15.3 /CUMM (4.8-10.8)
[2016-08-25] MEDS ORDERED: CIPRO500 M1 PO (15:47)
[2016-08-25 15:52] VITALS: BP 137/83
== END 2016-08-25 16:04 ==
LOC: ERH 10:21
PROVIDERS: Emergency Medicine
DX: R10.31 Right lower quadrant pain (principal)
CPT/HCPCS: 81001; 87040; 87086; 96360; 96361

== ENCOUNTER 2016-08-25 22:57 | Inpatient (IN) | payer OTHER ==
[~2016-08-25] VITALS: Ht 172.7 cm; Wt 86.2 kg
[~2016-08-25 22:57] MED LIST changes: +CIPRO500 M1 PO
--- NOTE | 2016-08-25 23:58 | ED GI/GU/ABDOMINAL COMPLAINT ---
History of Present Illness General Chief Complaint: Abdominal Pain/Flank Pain Stated Complaint: RIGHT SIDED ABD/FLANK PAIN Source: patient, family, old records Exam Limitations: no limitations Vital Signs & Intake/Output Vital Signs & Intake/Output Vital Signs Date Time Temp Pulse Resp B/P Pulse O2 O2 Flow FiO2 Ox Delivery Rate 08/25 2300 99.2 81 18 128/86 97 Room Air ED Intake and Output 08/26 0000 08/25 1200 Intake Total Output Total Balance Patient 190 lb Weight Allergies Coded Allergies: Sulfa (Sulfonamide Antibiotics) (RASH 07/26/16) Reconcile Medications Amlodipine Besylate/Benazepril (Amlodipine-Benazepril 10-40 MG) 10 MG-40 MG CAPSULE 1 CAP PO DAILY BP (Reported) Atorvastatin Calcium 10 MG TABLET 1 TAB PO DAILY CHOLESTEROL (Reported) Cholecalciferol (Vitamin D3) (Vitamin D) (Unknown Strength) TABLET (Unknown Dose) PO DAILY SUPPLEMENT (Reported) Ciprofloxacin HCl (Cipro) 500 MG TABLET 1 TAB PO BID UTI Cyanocobalamin (Vitamin B-12) (Unknown Strength) TABLET (Unknown Dose) PO DAILY SUPPLEMENT (Reported) Gluc 2KCL/Chondr/Earl Hy/Hy AC (Glucosamine & Chondroitin Cap) (Unknown Strength ) CAPSULE (Unknown Dose) PO DAILY SUPPLEMENT (Reported) Hydromorphone HCl 2 MG TABLET 1-2 TAB PO Q4P PRN PAIN Triamcinolone Acetonide 0.1 % CREAM..G. 1 OSCAR TOP BID ANKLE (Reported) Triage Note: PT TO ED C/O RETURNED RT SIDE ABD PAIN THAT GOES "ALL THE WAY THROUGH" TO RT FLANK FOR AN HOUR. STATES IS THIRD VISIT TODAY. DIAGNOSED WITH KIDNEY STONE TODAY. STENT PLACED ON THURSDAY FOR KIDNEY STONE ON LEFT SIDE. PT STATES SHE WAS PAIN FREE EARLIER BUT PAIN CAME BACK 1 HR AGO. TOOK 4 MG DILAUDID 1 HR AGO AND IT HAS NOT HELPED PAIN. DENIES NAUSEA. STATES WAS TOLD THAT IF THE PAIN CAME BACK AND THE MEDS DID NOT HELP, SHE SHOULD RETURN TO ED FOR ADMISSION TO HOSPITAL. BP 128/86. HR 81 HAS TAKEN 2 DOSES OF CIPRO Triage Nurses Notes Reviewed? yes ? N Is pt currently ? No HPI: Patient presents for evaluation of severe persistent right kidney stone pain despite the use of Dilaudid at home. Patient states that she was evaluated in the [facility] emergency department earlier today the pain came back again. SHe is describing a severe constant sharp pain that nothing seems to make feel better. She had a ureteral stent placed on Thursday due to knee stones. Past History Travel History Traveled to [place] past 21 day No Medical History Any Pertinent Medical History? 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 No Review of Systems Review of Systems Constitutional: Reports: no symptoms. EENTM: Reports: no symptoms. Respiratory: Reports: no symptoms. Cardiovascular: Reports: no symptoms. GI: Reports: no symptoms. Genitourinary: Reports: see HPI. Musculoskeletal: Reports: no symptoms. Skin: Reports: no symptoms. Neurological/Psychological: Reports: no symptoms. Hematologic/Endocrine: Reports: no symptoms. Immunologic/Allergic: Reports: no symptoms. All Other Systems: Reviewed and Negative Physical Exam Physical Exam Gastrointestinal: SEE BELOW Comments: Gen.: Well-nourished, well-developed, no acute respiratory distress. Uncomfortable appearing. Head: Normocephalic, atraumatic. Eyes: Normal inspection bilaterally Ears: Normal inspection bilaterally Nose: Normal inspection Throat/mouth : Moist mucosa Neck: Supple, full range of motion, no goiter Lungs: Quiet respirations Back: Normal range of motion Extremities: Normal range of motion grossly Neurologic: Cranial nerves grossly intact, speech is clear Skin: warm and dry Psychiatric: Calm, cooperative, no apparent delusions or hallucinations Core Measures ACS in differential dx? No Severe Sepsis Present: No Septic Shock Present: No Progress Differential Diagnosis: kidney stone Plan of Care: Orders Procedure Date/time Status Nothing by Mouth 08/26 B Active CBC WITHOUT DIFFERENTIAL 08/26 599 Active BASIC ELECTROLYTES PLUS BUN&CR 08/26 599 Active Pathway - chart 08/26 38 Active Admit to inpatient 08/26 38 Active Patient Data 08/26 38 Active Code Status 08/[address] ABD & PELVIS W/O IV CONTRAS 02/21 0018 Active VTE Mechanical Prophylaxis 08/26 UNK Active Vital Signs 08/26 UNK Active Intake & Output 08/26 UNK Active Activity/Ambulation 08/26 UNK Active Current Medications Sig/Sb Start time Last Medication Dose Stop Time Status Admin Atorvastatin Calcium 10 MG 1700 08/26 1700 UNVr (Lipitor) Amlodipine Besylate 10 MG DAILY 08/26 1000 UNVr (Norvasc) Lisinopril 40 MG DAILY 08/26 1000 UNVr (Prinivil) Heparin Sodium 5,000 UNIT Q8 08/26 0600 UNVr (Porcine) Acetaminophen 1,000 MG Q8P PRN 08/26 004 UNVr (Ofirmev) 08/27 0044 Dextrose/Sodium 1,000 ML .Q8H 08/26 44 UNVr Chloride (D5-Normal Saline) Hydromorphone HCl 1 MG Q2-3 HRS NEEDED.. 08/26 44 UNVr (Dilaudid) Ondansetron HCl 4 MG Q6P PRN 08/26 44 UNVr (Zofran) Initial ED EKG: none Comments: 08/26/2016 12:19:06 AM patient's case discussed with Dr. Conner who feels that given the patient's failure with outpatient treatment, she should be admitted for pain control and further testing. 08/26/2016 12:42:31 AM Nancy is feeling much better after pain medication. Departure Departure Disposition: STILL A PATIENT Condition: Stable Clinical Impression Primary Impression: Renal colic on right side Referrals: IAN BISHOP,CODY (PCP/Family) Departure Forms: Customer Survey General Discharge Information Admission Note Spoke With: EDGAR CONNER MD Documentation of Exam: Documentation of any treatments & extenuating circumstances including Concerns Regarding Discharge (functional status, medication knowledge or non-compliance, living conditions, etc.) that warrant an admission rather than observation: Patient has failed outpatient management with oral narcotic pain relievers. She continues to have episodes of severe uncontrolled debilitating pain that interferes with activities of daily living. I feel this makes her a poor candidate for outpatient management. The feel she now requires hospitalization for IV narcotic pain relievers and clinical monitoring. CAT scan report should be followed and treated accordingly.
--- NOTE | 2016-08-26 01:16 | CT SCAN REPORT ---
EXAMINATION: CT ABDOMEN AND PELVIS WITHOUT CONTRAST CLINICAL INFORMATION: Left double-J stent placement. Pain. History of ureteral stone COMPARISON: CT scan abdomen pelvis 08/13/2016 TECHNIQUE: Multidetector volumetric imaging was performed from the superior aspect of the liver through the pubic symphysis. Sagittal and coronal reformatted images were obtained on the technologist's workstation. No oral or intravenous contrast. DLP: 521.58 mGy-cm FINDINGS: LUNG BASES: The visualized lung bases are unremarkable. LIVER, GALLBLADDER, AND BILIARY TREE: The liver is normal in size, shape, and attenuation. No focal hepatic lesion or biliary ductal dilatation is present. The gallbladder is unremarkable with no evidence of radiopaque gallstones, gallbladder wall thickening, or obvious pericholecystic inflammatory changes. PANCREAS: Unremarkable. SPLEEN: Unremarkable. ADRENAL GLANDS: Unremarkable. KIDNEYS AND URETERS: Left kidney: Double-J stent present on the left kidney from the renal pelvis to the bladder. In the lower pole of the left kidney there is a 5 x 2 mm stone. There is no additional stone in the left kidney or left ureter or within the bladder. Right kidney: There is marked hydronephrosis of right kidney with dilatation of renal pelvis calyces and dilated right ureter into the pelvis. This is new since the CAT scan of 08/25/2016. No renal or ureteral stone is seen. There is however a 3.8 x 3.7 x 3.8 cm rounded hypodense lesion in the right adnexa with density measurement of 18 Hounsfield units that is new since prior CAT scan. Likely right ovarian follicle/cyst. The dilated right ureter appears to be compressed at the level of the cyst. BLADDER: Double-J stent catheter tip in the bladder. No stone in the bladder. GASTROINTESTINAL TRACT: Diverticulosis of the colon without diverticulitis. No bowel wall thickening or edema. Large volume of stool in the colon. The appendix is normal. The small bowel loops are normal. ABDOMINAL WALL: No significant hernia is appreciated. LYMPH NODES: Normal. VASCULAR: Atherosclerotic vascular wall calcifications of aorta. No aneurysm. PELVIC VISCERA: 3.8 x 3.7 x 3.8 cm rounded hypodense lesion in the right adnexa with density measurement of 18 Hounsfield units and is since CAT scan 08/25/2016. No suspect this is related to the right ovary as follicle or cyst. Uterus is absent. OSSEOUS STRUCTURES: Degenerative change of lower lumbar spine IMPRESSION: 1. Left ureteral stent in good position. Nonobstructive small stone lower pole left kidney. No ureteral calculus or bladder calculus. No hydronephrosis of left kidney. 2. Interval development of marked hydronephrosis of the right kidney. This appears to be secondary to interval development of a right adnexal large cyst or follicle. Both of these findings are new since CAT scan of 08/13/2016.
[2016-08-26 03:04] VITALS: BP 112/60
[2016-08-26 06:55] VITALS: BP 112/60
--- NOTE | 2016-08-26 06:57 | History & Physical Pre-Op ---
General Information and HPI MD Statement: I have seen and personally examined DONNY LYNN and documented this H&P. The patient is a 51 year old F who presented with a patient stated chief complaint of [R flank pain and R hydronephrosis on CT scan and ultrasound]. Source of Information: patient, old records Exam Limitations: no limitations History of Present Illness: This patiet was diagnosed with bilateral upper urinary tract stones. On 08/22/16 she underwent cystoscopy and bilateral ureteroscopy and insertion of a L ureteral stent. Since then she has been to the ER 3 times with R flank pain. Renal ultrasound shows mild R hydronephrosis. CT of the abd and pelvis shows moderate R hydronephrosis with a new cystic mass in the R pelvis. The report states that this is likely an adnexal mass and was not there on a CT of 08/13/16. She was admitted to the hospital for pain control and further w/u. Allergies/Medications Allergies: Coded Allergies: Sulfa (Sulfonamide Antibiotics) (RASH 07/26/16) Home Med list Amlodipine Besylate/Benazepril (Amlodipine-Benazepril 10-40 MG) 10 MG-40 MG CAPSULE 1 CAP PO DAILY BP (Reported) Atorvastatin Calcium 10 MG TABLET 1 TAB PO DAILY CHOLESTEROL (Reported) Cholecalciferol (Vitamin D3) (Vitamin D) (Unknown Strength) TABLET (Unknown Dose) PO DAILY SUPPLEMENT (Reported) Ciprofloxacin HCl (Cipro) 500 MG TABLET 1 TAB PO BID UTI Cyanocobalamin (Vitamin B-12) (Unknown Strength) TABLET (Unknown Dose) PO DAILY SUPPLEMENT (Reported) Gluc 2KCL/Chondr/Earl Hy/Hy AC (Glucosamine & Chondroitin Cap) (Unknown Strength ) CAPSULE (Unknown Dose) PO DAILY SUPPLEMENT (Reported) Hydromorphone HCl 2 MG TABLET 1-2 TAB PO Q4P PRN PAIN Compliance With Home Meds: GOOD Past History Medical History Blood Transfusion Hx: No Neurological: vertigo EENT: NONE Cardiovascular: hypertension, MURMUR Respiratory: NONE Gastrointestinal: diverticulitis Hepatic: NONE Renal: KIDNEY STONES Musculoskeletal: NONE Psychiatric: NONE Endocrine: NONE Blood Disorders: NONE Cancer(s): 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 Home Services at Home None Smoking Status: Never Smoked ETOH Use: denies use Illicit Drug Use: denies illicit drug use Exam & Diagnostic Data Last 24 Hrs of Vital Signs/I&O Vital Signs Date Time Temp Pulse Resp B/P Pulse O2 O2 Flow FiO2 Ox Delivery Rate 08/26 0304 98.6 76 19 112/60 92 Room Air 08/26 0224 98.8 85 18 125/88 94 Room Air 08/26 0103 98.9 83 18 125/80 96 08/25 2300 99.2 81 18 128/86 97 Room Air Intake & Output 08/26 0800 08/26 0000 08/25 1600 Intake Total 1002 Output Total Balance 1002 Intake, IV 1002 Patient 190 lb 190 lb Weight No acute distress at this time Lungs: normal respiratory effort Heart: RRR Back: No CVA tenderness Abd: soft and non tender Extrems: no calf tenderness Assessment/Plan Assessment/Plan: Imp: s/p bilateral ureteroscopy New onset R hydronephrosis New cystic mass in R pelvis of unclear etiology HTN Plan: NPO Pain meds Will schedule for cysto, R retrograde pyelogram and probable R ureteral stent As Ranked By This Provider Problem List: 1. Flank pain
[2016-08-26 09:14] LABS: ABSOLUTE BASOPHIL COUNT 0.1 /CUMM (0.0-0.2); ABSOLUTE EOSINOPHIL COUNT 0.1 /CUMM (0.0-0.7)
[2016-08-26 09:22] LABS: ABSOLUTE GRANULOCYTE CT 9.9 /CUMM (1.4-6.5); ABSOLUTE LYMPH COUNT 2.2 /CUMM (1.2-3.4); BASOPHIL % 0.6 % (0.0-2.0); EOSINOPHIL % 0.5 % (0-5); GRANULOCYTE % 74.9 % (42.2-75.2); MEAN CORPUSCULAR HGB 30.3 PG (27.0-31.0); MEAN CORPUSCULAR HGB CONC 33.4 G/DL (33.0-37.0); MEAN CORPUSCULAR VOLUME 90.6 FL (81.0-99.0); MEAN PLATELET VOLUME 8.9 FL (7.4-10.4); PLATELET COUNT 355 /CUMM (130-400); RBC DISTRIBUTION WIDTH 13.9 % (11.5-14.5); RED BLOOD CELL CT 4.15 /CUMM (4.20-5.40); WHITE BLOOD CELL COUNT 13.2 /CUMM (4.8-10.8)
[2016-08-26 09:23] LABS: HEMATOCRIT 37.6 % (37-47)
[2016-08-26 13:28] VITALS: BP 140/90
--- NOTE | 2016-08-26 15:17 | Operative Report ---
Operative/Inv Procedure Report Surgery Date: 08/26/16 Name of Procedure: Cystoscopy and insertion of R ureteral stent Pre-Operative Diagnosis: Right hydronephrosis Post-Operative Diagnosis: Same Estimated Blood Loss: scant Surgeon/Script Developer: Teddy CONNER MD,EDGAR Vinson Anesthesia: local monitored anesthesi Drains: 28 cm 6 Mozambican right double-J ureteral stent. Left double-J ureteral stent which was previously in place Specimens: Urine for culture Complications: None Condition: Stable Operative Indication: This patient underwent bilateral ureteroscopy about 4 days ago. Left ureteral stent was left in place. She presented to the emergency room on more than one occasion with right flank pain. Noncontrast CT scan showed moderate right hydronephrosis down to the level of the bladder. She continued to have intermittent pain and therefore was scheduled for a right retrograde pyelogram and right ureteral stent insertion. Operative/Procedure Note Note: The patient was taken to the cystoscopy room and identified. She was placed in the supine position on the cystoscopy table. A timeout was executed appropriately with the patient awake. Intravenous sedation was given. The patient was then placed in the dorsolithotomy position and prepped and draped in usual fashion for cystoscopy. Surgical pause was executed appropriately. The 22 Mozambican cystoscope sheath was placed into the bladder and cystoscopy performed after fluoroscopy image was performed to verify the correct orientation of the fluoroscopy image and the correct side of the surgery. The bladder showed evidence of mild cystitis. A left ureteral stent was in place. The right ureteral orifice did appear to be inflamed. There was no evidence of bladder tumor or stone. An open-ended catheter was placed into the right ureteral orifice and right retrograde pyelogram performed. There was right moderate hydroureteronephrosis down to the level of the bladder. This was consistent with edema at or near the right ureterovesical junction. The proximal ureter was quite tortuous. The open-ended catheter was placed up to the proximal ureter. It would not negotiate the tortuosity of the right proximal ureter. A guidewire was placed through the open-ended catheter and this was advanced into the right renal pelvis. The open-ended catheter was also advanced into the right renal pelvis. More contrast was injected to better outline the right renal collecting system. The guidewire was placed back through the open-ended catheter which was removed. Under visual fluoroscopic control 28 cm 6 Mozambican right double-J stent was placed. A short suture was left attached the distal end. The proximal end was seen to be coiled in the right renal pelvis on fluoroscopy and the distal end coiled in the bladder. The bladder was emptied and the cystoscope removed. The patient tolerated the procedure well and as completion was taken to recovery room in stable condition. Findings: Moderate right hydroureteronephrosis down to the level of the bladder consistent with edema at or near the right ureterovesical junction Discharge Disposition: PACU
--- NOTE | 2016-08-26 15:18 | RADIOLOGY REPORT ---
EXAMINATION: Fluoroscopy in the operating room suite. CLINICAL INDICATION: Renal and ureteral calculi. Hydroureteronephrosis of the right kidney. Right ovarian cyst. COMPARISON: CT of the abdomen and pelvis on August 26 at 12:16 AM. TECHNIQUE: Fluoroscopic assistance was provided to Teddy Moran in the cystoscopy suite for right ureteral stent placement. The total time fluoroscopy was 16.3 seconds. 2 spot films are submitted for review. FINDINGS: The first spot film documents placement of a right ureteral stent the proximal end of which is in the dilated right renal pelvis. There is grade 3 hydronephrosis of the right renal collecting system. The proximal right ureter is dilated. The second spot film demonstrates the distal ends of both ureteral stents terminating in the bladder. The left kidney was not imaged. IMPRESSION: Status post placement of a right ureteral stent. Please refer to operative notes for further details.
[2016-08-26 16:30] VITALS: BP 130/80
[2016-08-26 19:06] VITALS: BP 108/70
[2016-08-26 22:30] VITALS: BP 96/52
[2016-08-27 06:34] VITALS: BP 110/70
[2016-08-27 10:11] VITALS: BP 110/78
--- NOTE | 2016-08-27 10:17 | PN- Urology ---
Subjective Subjective: No significant pain Objective Vital Signs and I&Os Vital Signs Date Time Temp Pulse Resp B/P Pulse O2 O2 Flow FiO2 Ox Delivery Rate 08/27 1011 65 110/78 08/27 1010 65 110/78 08/27 0634 98.1 62 20 110/70 95 Room Air 08/26 2230 98.3 71 18 96/52 94 Room Air 08/26 1906 98.8 79 20 108/70 96 Room Air 08/26 1630 98.5 70 17 130/80 96 Room Air 08/26 1328 98.3 79 20 140/90 97 Room Air Intake & Output 08/27 1600 08/27 0800 08/27 0000 08/26 1600 08/26 0800 08/26 0000 Intake Total 960 999 839 2465 Output Total Balance 960 289 289 3654 Intake, IV 798 268 9434 Intake, Oral 360 300 120 Patient 190 lb 190 lb Weight Back: no CVA tenderness Abd: soft and non tender Assessment/Plan Assessment/Plan Imp: R hydro-ureteronephrosis, s/p R ureteral stent insertion Plan: d/c home today f/u in office with Dr Mayer in 1-2 weeks Core Measures/Miscellaneous Venous Thromboembolism VTE Risk Factors: Acute medical illness, Age > 40 VTE Contraindications: No Contraindications VTE Prophylaxis Ordered Inpt: Early Ambulation VTE Diagnosis: No Beta Ananth Is Beta Ananth a Home Med? No Antibiotics Is Patient on Antibiotics? Yes
--- NOTE | 2016-08-31 11:27 | Discharge Summary ---
Visit Information Visit Dates Admission Date: 08/26/16 Discharge Date: 08/27/16 Hospital Course Course Attending Physician: DALILA BISHOP,EDGAR Vinson Primary Care Physician: IAN BISHOP,[facility] Course: She had undergone bilateral ureteroscopy on 08/22/16. A L ureteral stent was placed at the end of the procedure. She presented to the ER with severe R flank pain. CT should R hydro-ureteronephrosis down to the level of the bladder, a L ureteral stent in proper position and a 5x2 mm stone in the lower pole of the L kidney. She underwent cystoscopy, R retrograde pyelogram and insertion of a R ureteral stent. Following this her R flank pain resolved. The cause of the R hydro-ureteronephrosis was felt to be edema at the R UVJ. Complications: none Allergies: Coded Allergies: Sulfa (Sulfonamide Antibiotics) (RASH 07/26/16) Significant Procedures: Cystoscopy and insertion of R ureteral stent Disposition Summary Disposition Principal Diagnosis: R hydro-ureteronephrosis Additional Diagnosis: L renal calculus Discharge Disposition: home or self care Discharge Instructions General Discharge Information Code Status: Full Code Patient's Diet: Regular Patient's Activity: As tolerated Follow-Up Instructions/Appts: To f/u with Dr Mayer for staged removal of ureteral stents Medications at Discharge Discharge Medications: Stop taking the following medications: Ciprofloxacin HCl (Cipro) 500 MG TABLET ORAL TWICE DAILY Qty = 20 Continue taking these medications: Amlodipine Besylate/Benazepril (Amlodipine-Benazepril 10-40 MG) 10 MG-40 MG CAPSULE 1 Capsule ORAL DAILY Qty = 90 Comments: PER PT NOT GIVEN, INDIVIDUAL AMLODIPINE AND LISINOPRIL GIVEN ASUBSTITUTION Last Taken: 08/23/16 Time: 1000 AM (SUBSTITUTION) Atorvastatin Calcium (Atorvastatin Calcium) 10 MG TABLET 1 Tablet ORAL DAILY Qty = 90 Comments: Last Taken:08/26/16 Time:17:00 Cyanocobalamin (Vitamin B-12) (Unknown Strength) TABLET Unknown Dose ORAL DAILY Comments: PER PT NOT GIVEN IN HOSPITAL Cholecalciferol (Vitamin D3) (Vitamin D) (Unknown Strength) TABLET Unknown Dose ORAL DAILY Comments: PER PT NOT GIVEN IN HOSPITAL Gluc 2KCL/Chondr/Earl Hy/Hy AC (Glucosamine & Chondroitin Cap) (Unknown Strength ) CAPSULE Unknown Dose ORAL DAILY Comments: PER PT NOT GIVEN IN HOSPITAL Hydromorphone HCl (Hydromorphone HCl) 2 MG TABLET 1-2 Tablet ORAL EVERY 4 HOURS NEEDED as needed for PAIN Qty = 30 Comments: Last Taken: 08/23/16 Time: 200 AM Copies To: ARA BISHOP,ROMEO
== END 2016-08-27 11:07 | DRG 694 ==
LOC: ENRESERVDT → ENRESERVTM → ERH 22:57 → ERHI 08-26 00:39 → ENPENDDIS 08-26 00:39 → 2NA 08-26 02:57
PROVIDERS: Physician Assistant Surgical; ADMIT Urology
PROC: 0T768DZ Dilation of Right Ureter with Intraluminal Device, Via Natural or Artificial Opening Endoscopic (ICD-10-PCS; principal; 2016-08-26)
DX: N13.2 Hydronephrosis with renal and ureteral calculous obstruction (principal); I10 Essential (primary) hypertension; R42 Dizziness and giddiness
CPT/HCPCS: 2NAP; 74000; 74176; 82436; 87086; 96374; 96375; C2617; J0131; J0690; J1644; J1885; J2405; J7042

== ENCOUNTER 2017-10-29 10:12 | Emergency (ER) | payer OTHER ==
[~2017-10-29] VITALS: Ht 172.7 cm; Wt 86.2 kg
[~2017-10-29 10:12] MED LIST changes: +VITAMIN D1000 UNIT PO; -VITAMIN D2000 UNI1 PO
[2017-10-29] MEDS ORDERED: SERTRALINE HCL50 MG PO (11:48)
[2017-10-29] MEDS ORDERED: VITAMIN B-125000 MC1 PO (11:48)
[2017-10-29 12:20] LABS: ABSOLUTE BASOPHIL COUNT 0 /CUMM (0.0-0.2); ABSOLUTE EOSINOPHIL COUNT 0 /CUMM (0.0-0.7); ABSOLUTE GRANULOCYTE CT 5.3 /CUMM (1.4-6.5); ABSOLUTE LYMPH COUNT 1.2 /CUMM (1.2-3.4); ABSOLUTE MONOCYTE COUNT 0.5 /CUMM (0.10-0.60); BASOPHIL % 0.2 % (0.0-2.0); EOSINOPHIL % 0.2 % (0-5); GRANULOCYTE % 75.9 % (42.2-75.2); HEMATOCRIT 42.2 % (37-47); MEAN CORPUSCULAR HGB 30.5 PG (27.0-31.0); MEAN CORPUSCULAR HGB CONC 34.5 G/DL (33.0-37.0); MEAN CORPUSCULAR VOLUME 88.5 FL (81.0-99.0); MEAN PLATELET VOLUME 8.2 FL (7.4-10.4); PLATELET COUNT 407 /CUMM (130-400); RBC DISTRIBUTION WIDTH 12.9 % (11.5-14.5); RED BLOOD CELL CT 4.77 /CUMM (4.20-5.40)
--- NOTE | 2017-10-29 12:33 | ED AMS/SEIZURE/WEAK/DIZZY ---
History of Present Illness General Chief Complaint: Dizziness Stated Complaint: DIZZINESS, NUMBNESS IN HANDS Source: patient Exam Limitations: no limitations Vital Signs & Intake/Output Vital Signs & Intake/Output Vital Signs Date Time Temp Pulse Resp B/P B/P Pulse O2 O2 Flow FiO2 Mean Ox Delivery Rate 10/29 1213 Room Air 10/29 1021 97.9 82 18 121/77 98 Room Air Room Air Allergies Coded Allergies: Sulfa (Sulfonamide Antibiotics) (RASH 10/29/17) Reconcile Medications Amlodipine Besylate/Benazepril (Amlodipine-Benazepril 10-40 MG) 10 MG-40 MG CAPSULE 1 CAP PO DAILY BP (Reported) Cholecalciferol (Vitamin D3) (Vitamin D) 1,000 UNIT TABLET 1 TAB PO DAILY VITAMIN SUPPORT (Reported) Cyanocobalamin (Vitamin B-12) (Vitamin B-12) 5,000 MCG TAB.RAPDIS 1 TAB PO DAILY VITAMIN SUPPORT (Reported) Gluc 2KCL/Chondr/Earl Hy/Hy AC (Glucosamine & Chondroitin Cap) (Unknown Strength ) CAPSULE (Unknown Dose) PO DAILY SUPPLEMENT (Reported) Sertraline HCl 50 MG TABLET 1 TAB PO DAILY MENTAL HEALTH (Reported) Triage Note: PT TO ED WITH C/O SWEATING AT WORK, FELT LIGHTHEADED, AND BILATERAL HAND NUMBNESS. PER PT JUST STARTED NEW MED ZOLOFT FOR HOT FLASHES, TOOK 2 DOSES. Triage Nurses Notes Reviewed? yes Onset: Abrupt Duration: hour(s):, GETTING BETTER Timing: single episode today Injury Environment: work HPI: 52-year-old female comes into the emergency room with complaints of dizziness and clamminess. Patient reports that she was at work. She felt like she was getting very hot and everything was closing in. She felt very lightheaded and dizzy like she was going to pass out. She had some associated clamminess and sweatiness. Denies any vomiting shortness of breath chest pain or palpitations. Symptoms lasted for about 30-45 minutes. She reports they've improved but now she's got some residual clamminess and some tingling in her hands. Denies any headache. Denies any vision loss. Denies any prior history. (Ritesh MARY,Celso) Past History Travel History Traveled to [place] past 21 day No Medical History Any Pertinent Medical History? 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 No (Celso Zepeda) Review of Systems Review of Systems Constitutional: Reports: no symptoms. EENTM: Reports: see HPI. Respiratory: Reports: no symptoms. Cardiovascular: Reports: see HPI. GI: Reports: no symptoms. Genitourinary: Reports: no symptoms. Musculoskeletal: Reports: no symptoms. Skin: Reports: see HPI. Neurological/Psychological: Reports: no symptoms. Hematologic/Endocrine: Reports: no symptoms. Immunologic/Allergic: Reports: no symptoms. All Other Systems: Reviewed and Negative (Celso Zepeda) Physical Exam Physical Exam General Appearance: well developed/nourished, alert, awake Head: atraumatic Eyes: Bilateral: normal appearance, PERRL, EOMI. 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 No CVA/TIA Diagnosis No Sepsis Present: No Sepsis Focused Exam Completed? No (Celso Zepeda) Progress Differential Diagnosis: arrythmia, benign positional vertigo, CVA/stroke, dehydration, encephalitis, electrolyte imbalance, hypoglycemia, intracranial Hem., labrynthitis, postural hypotension, presyncope, valvular dysfunction, vasovagal, FL, Plan of Care: Orders Procedure Date/time Status Regular Diet 10/29 D Active TROPONIN LEVEL 10/29 1500 Complete EKG 10/29 1500 Active D-DIMER 10/29 1144 Complete MISTAKE 10/29 1143 Active Telemetry/Diamond Sorter 10/29 1143 Active THYROID STIMULATING HORMONE 10/29 1143 Complete TROPONIN LEVEL 10/29 1143 Complete COMPREHENSIVE METABOLIC PANEL 10/29 1143 Complete CBC WITHOUT DIFFERENTIAL 10/29 1143 Complete EKG 10/29 1025 Active Laboratory Tests 10/29/17 1500: Troponin I < 0.01 10/29/17 1150: Anion Gap 15, Estimated GFR > 60, BUN/Creatinine Ratio 16.7, Glucose 92, Calcium 9.4, Total Bilirubin 0.7, AST 20, ALT 33, Alkaline Phosphatase 106, Troponin I < 0.01, Total Protein 8.1, Albumin 4.4, Globulin 3.7, Albumin/Globulin Ratio 1.2, TSH 0.702, D-Dimer High Sensitivty 234, CBC w Diff NO MAN DIFF REQ, RBC 4.77, MCV 88.5, MCH 30.5, MCHC 34.5, RDW 12.9, MPV 8.2, Gran % 75.9 H, Lymphocytes % 16.4 L, Monocytes % 7.3, Eosinophils % 0.2, Basophils % 0.2, Absolute Granulocytes 5.3, Absolute Lymphocytes 1.2, Absolute Monocytes 0.5, Absolute Eosinophils 0, Absolute Basophils 0 Diagnostic Imaging: Viewed by Me: Radiology Read. Discussed w/RAD: Radiology Read. Radiology Impression: PATIENT: DONNY LYNN PRESENT AGE: 52 PATIENT ACCOUNT NO: [id number] : 64 LOCATION: [facility] ORDERING PHYSICIAN: Celso MARY SERVICE DATE: 10/29/17 EXAM TYPE : RAD - XRY-CHEST XRAY, TWO VIEWS EXAMINATION: XR CHEST CLINICAL INFORMATION: Near syncope COMPARISON: PA and lateral chest 02/02/2012, portable chest 2016 TECHNIQUE: 2 views of the chest were obtained. FINDINGS: The heart and pulmonary vessels appear normal. No infiltrates, effusions or lung masses are seen. 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 The bony thorax is unremarkable. IMPRESSION: No acute intrathoracic disease. DICTATED BY: Ras Steward MD DATE/ TIME DICTATED:10/29/171249 PRODUCT MGR:MARGA DATE/TIME TRANSCRIBED: 10/29/171249 CONFIDENTIAL, DO NOT COPY WITHOUT APPROPRIATE AUTHORIZATION. < Electronically signed in Other Vendor System> SIGNED BY: Bin BISHOPRas 10/29/17 4628 Initial ED EKG: normal sinus rhythm, rate (66), BORDERLINE T WAVE ABNORMALITIES Repeat EKG: unchanged Comments: 10/29/2017 4:32:49 PM Patient clinically looks well. Patient is in no apparent distress. Patient is nontoxic-appearing. Her symptoms are completely resolved. Unchanged EKG and second troponin negative. Patient continues to have no chest pain or shortness of breath. Patient may require outpatient Holter monitor and echocardiogram. She understands and agrees with plan of care. case discussed with dr elder. (Celso Zepeda) Departure Departure Disposition: HOME OR SELF CARE Condition: Stable Clinical Impression Primary Impression: Near syncope Referrals: Shayla Headley MD (PCP/Family) Additional Instructions: Follow-up with Dr. Duran from cardiology. Follow-up with your primary care doctor. Discontinue Zoloft until you talk with your PCP. Return for any other concerns worsening symptoms. Please go over all results of today's visit with your primary care doctor. Contact your primary care doctor to let them know you were here in the emergency room. There may be nonspecific findings which may not be related to your visit today here in the emergency room but may require further evaluation and chronic monitoring by your primary care doctor. If you had a laceration today the chance of foreign body always remains. You should follow-up with your primary care doctor for recheck in 3-5 days for a wound check. If you had an x-ray done there is a chance that a fracture could have been missed on initial read and you should follow-up with your primary care doctor for repeat x-rays if symptoms persist. If your blood pressure was elevated here in the emergency room please have rechecked by [facility] primary care doctor within the next 48. If you were prescribed a narcotic here in the emergency room or any type of controlled substances you're not allowed to drive while taking this medication or operate any type of heavy machinery. Narcotics can make you feel lightheaded dizziness nausea and can cause constipation. You may need to picker tender a stool softener. Thank you for choosing [facility] emergency room. Please return to the emergency room immediately if you have any other concerns worsening of symptoms. Departure Forms: Customer Survey General Discharge Information (Celso Zepeda) PA/HVAC TECHNICIAN Co-Sign Statement Statement: ED Attending supervision documentation- [] I saw and evaluated the patient. I have also reviewed all the pertinent lab results and diagnostic results. I agree with the findings and the plan of care as documented in the PA's/HVAC TECHNICIAN's documentation. [x] I have reviewed the ED Record and agree with the PA's/HVAC TECHNICIAN's documentation. [] Additions or exceptions (if any) to the PAs/HVAC TECHNICIAN's note and plan are summarized below: [] (Valeria BISHOP,Saeed Kenney)
--- NOTE | 2017-10-29 13:17 | RADIOLOGY REPORT ---
EXAMINATION: XR CHEST CLINICAL INFORMATION: Near syncope COMPARISON: PA and lateral chest 02/02/2012, portable chest 08/25/2016 TECHNIQUE: 2 views of the chest were obtained. FINDINGS: The heart and pulmonary vessels appear normal. No infiltrates, effusions or lung masses are seen. 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 The bony thorax is unremarkable. IMPRESSION: No acute intrathoracic disease.
[2017-10-29 16:53] VITALS: BP 136/79
== END 2017-10-29 16:54 ==
LOC: ERH 10:12
PROVIDERS: Physician Assistant Medical
DX: R55 Syncope and collapse (principal); R23.1 Pallor; I10 Essential (primary) hypertension
CPT/HCPCS: 71046; 93005; 93010

== ENCOUNTER → 2017-12-15 | Day surgery (SDC) | payer OTHER ==
[~2017-12-15] VITALS: Ht 172.7 cm; Wt 86.2 kg
[~2017-12-15] MED LIST changes: +SERTRALINE HCL50 MG PO; +VITAMIN B-125000 MC1 PO
--- NOTE | 2017-12-15 14:58 | Operative Report ---
Operative/Inv Procedure Report Surgery Date: 12/15/17 Name of Procedure: left renal eswl, fluoroscopy Pre-Operative Diagnosis: left renal stone Post-Operative Diagnosis: same Estimated Blood Loss: none Surgeon/Coke Oven Patcher: Catarino Mondragon MD Anesthesia: general endotracheal tube (r), moderate sedation Specimens: none Complications: none Operative/Procedure Note Note: The patient was taken to the operating room and placed on the ESWL table in supine position. With the patient awake, timeout was performed to confirm correct identity, procedure, laterality, anesthesia, and other pertinent johny- operative information. After adequate anesthesia, the patient was positioned so that the patient's left flank was positioned over the table cut-out, overlying the dome of the treatment head. Once the patient was adequately sedated, fluoroscopy, as well as Renal ultrasound was used to locate the LEFT renal stone. Renal US confirmed the presence of the stone which measured it to be approximately 6 mm upper pole stone. The stone was visible with fluoroscopy. Renal US revealed, no hydronephrosis, and no solid tumor, and presence of the stone. The position of the stone was optimized by using fluoroscopy in AP and oblique views;placing the stone within the ESWL c-arm crosshairs. Once the stone's position was optimized , the LEFT renal E.S.W.L. was initiated at low energy level. After noting the patient's tolerance to the shockwaves, the intensitiy was ramped up to maximum level. At the end of the procedure, the left renal stone had dissintegrated. Of note, a total of 2500 shockwaves were delivered to the stone. The patient tolerated the ESWL procedures well, was awakened, then taken to recovery in satisfactory condition via stretcher. The patient was dischared home with pain medications, diet orders, and intructions to catch fragments by straining the urine. The patient to to have follow-up renal ultrasound and KUB in 1 to 2 weeks, prior to follow-up visit in my office. He will then proceed with metabolic stone work-up. Findings: left 9mm UP stone Discharge Disposition: Same Day Admissions CC: Catarino Mondragon MD
== END ==
LOC: STS 12:00
DX: N20.0 Calculus of kidney (principal); I10 Essential (primary) hypertension
CPT/HCPCS: J1885; J2250; J2405

== ENCOUNTER → 2018-01-12 | Day surgery (SDC) | payer OTHER ==
[~2018-01-12] VITALS: Ht 172.7 cm; Wt 86.2 kg
--- NOTE | 2018-01-12 10:07 | Operative Report ---
Operative/Inv Procedure Report Surgery Date: 01/12/18 Name of Procedure: RIGHT URETER ESWL/FLUOROSCOPY Pre-Operative Diagnosis: RIGHT COLIC WITH RIGHT URETER STONE Post-Operative Diagnosis: SAME Estimated Blood Loss: none Surgeon/Tool And Die Maker: Catarino Mondragon MD Anesthesia: moderate sedation Specimens: NONE Complications: NONE Operative/Procedure Note Note: The patient was taken to the operating room and placed on the ESWL table in supine position. With the patient awake, timeout was performed to cofirm correct identity, procedure, laterality, anesthesia, and other pertinent johny- operative information. The patient was positioned over the ESWL table cut-out, overlying the dome of the shockwave generator, with on his right flank. C-arm fluroscopy, as well as renal US, was used to locate the stone, and evaluate the RIGHT kidney. The stone was visible on fluoroscopy at the right distal-ureter, measuring approximately 4 mm. Renal US confirmed mild hydronephrosis. No other stone/ tumor was visualized in the right kidney. After adequate anesthesia, the right ureter stone's position was optimized for Shockwave lithotrypsy using fluoroscopy in AP and oblique views. The E.S.W.L. was initiated at low power levels x 200 shocks. After noting the patient's tolerance to the shockwaves, the shock wave power level was quickly maximized. Toward the end of the procedure, the composition of the stone had changed significantly, indicating the pulverization of the ureter stone. A total of 3000 shockwaves were delivered to the stone in order to achieve adequate lithotrypsy. The patient tolerated both the procedure well, was awakened, and taken to recovery in satisfactory condition via stretcher. The pt will be dischared home with pain meds, diet orders, and intructions to catch fragments with straining the urine. The patient is to have follow-up renal ultrasound and KUB in 1-2 weeks, prior to follow-up visit in my office. Discharge Disposition: Same Day Admissions CC: Catarino Mondragon MD
== END ==
LOC: STS 01:01
DX: N20.1 Calculus of ureter (principal); Z87.442 Personal history of urinary calculi; I10 Essential (primary) hypertension
CPT/HCPCS: J2250